=== PATIENT | male | born 1970 | race Caucasian/White ===

== ENCOUNTER → 2020-02-17 13:14 | Outpatient (CLI) | payer BC, SELFPAY ==
--- NOTE | ~2020-02-17 | MR_ITS ---
EXAMINATION: MR brain/brain stem wo/w con DATE: 02/17/2020 14:11 INDICATION: Loss of balance. Visual disturbance. TECHNIQUE: Magnetic resonance imaging (MRI) of the brain and brainstem was performed without and with 15 mL MultiHance intravenous contrast. Sequences included sagittal and axial T1-weighted FSE, axial diffusion-weighted FS EPI, axial T2*-weighted GRE, axial T2-weighted FLAIR Propeller, and axial T2-we ighted Propeller. Postcontrast sequences included axial and coronal T1-weighted FSE. Apparent diffusi on coefficient (ADC) maps were created. COMPARISON: None. FINDINGS: There is no intracranial hemorrhage, acute infarction, or abnormal intracranial mass lesion . The ventricles are normal in size. There is mild mucosal thickening in right maxillary sinus. The o rbits are normal. The mastoid air cells are normal. IMPRESSION: 1. Normal brain. Reviewed, dictated and finalized at location B. CONSULTANT IMPRESSION: 1. Normal brain.
[2020-02-21 12:58] LABS: Estimated Glomerular Filt Rate > 60
== END ==
PROVIDERS: PCP Family Medicine; Visit Provider Family Medicine
DX: R26.81 Unsteadiness on feet (principal); H53.9 Unspecified visual disturbance; R29.2 Abnormal reflex; G25.3 Myoclonus
CPT/HCPCS: 36415; 70553; 82565; A9577